=== PATIENT | female | born 1965 | race African-American/Black ===

== ENCOUNTER 2018-11-15 15:51 | Emergency (ER) | payer OTHER ==
[~2018-11-15] VITALS: Ht 165.1 cm; Wt 59.4 kg
[2018-11-15 15:54] VITALS: Ht 165.1 cm; Wt 59.4 kg
[2018-11-15 18:03] VITALS: BP 141/75
== END 2018-11-15 18:03 | disposition home or self-care (01) ==
LOC: ED 15:51
DX: R07.89 Other chest pain (principal)
CPT/HCPCS: Q0092